=== PATIENT | male | born 1950 | race Caucasian/White ===

== ENCOUNTER → 2018-11-30 06:59 | Outpatient (CLI) | payer MEDICARE, MEDICAID, SELFPAY ==
[2018-11-30 08:38] LABS: Add Manual Diff / Slide Review NO; Basophils Absolute Auto 0 /uL (0-100); Basophils Percent Auto 0.7 % (0-2); Eosinophils Absolute Auto 300 /uL (0-450); Hematocrit 45.8 % (41-53); Lymphocytes Absolute Auto 2600 /uL (1100-4500); Mean Corpuscular HGB Conc 32.8 % (30-36); Mean Corpuscular Hemoglobin 29.4 PG (26-34); Mean Corpuscular Volume 89.8 fL (80-100); Monocytes Absolute Auto 400 /uL (0-900); Monocytes Percent Auto 5.5 % (3-14); Neutrophils Absolute Auto 3400 /uL (1500-7000); Neutrophils Percent Auto 50.8 % (50-75); Platelet Count 222 X10^3/uL (150-400); Red Cell Distribution Width 13.1 % (11.6-14.8); White Blood Cell Count 6.7 X10^3/uL (4.5-11.0)
[2018-11-30 08:51] LABS: Blood Urea Nitrogen 18 mg/dL (9-20); Calcium 9.3 mg/dL (8.4-10.2); Carbon Dioxide 26 mmol/L (22-32); Chloride 103 mmol/L (98-107); Cholesterol 159 mg/dL (140-199); Estimated Glomerular Filt Rate > 60.0 mL/min (>60); Glucose 106 mg/dL (80-110); HDL Cholesterol 44 mg/dL (40-60); HEMOLYSIS < 15 (0-50); LDL Cholesterol Calculated 96 mg/dL (<100); Potassium 4.1 mmol/L (3.4-5.1); Sodium 143 mmol/L (137-145); Triglycerides 97 mg/dL (35-150)
== END ==
PROVIDERS: Family Provider Internal Medicine; PCP Internal Medicine; Visit Provider Internal Medicine Cardiovascular Disease
DX: I10 Essential (primary) hypertension (principal)
CPT/HCPCS: 36415; 80048; 80061; 85025

== ENCOUNTER → 2019-05-27 07:37 | Outpatient (CLI) | payer MEDICARE, MEDICAID, SELFPAY ==
--- NOTE | 2019-05-27 08:44 | P.PCN_ITS ---
Cardiac Stress Test Report Referral & Results Date Patient Seen: 05/27/19 Time Patient Seen: 08:30 Requesting provider: Pedro Moura Indication: Angina Rest ECG: V-paced Procedure Note: After both written and verbal informed consent the patient had an IV started by the diagnostic imaging RN and then was hooked up to the treadmill monitoring system. The patient was placed on the treadmill at 1 mile an hour with no elevation and was then injected with the Ewa scan material. The Cardiolite was then immediately administered. The patient spent an additional 2-3 minutes on the treadmill before being returned to the [facility] in the supine position. The patient had a normal response to all infused materials. Impression: Successful Ewa protocol. Will await perfusion imaging Please note: Actual ECG tracings can be found in the PACS system.
--- NOTE | 2019-05-29 09:03 | DI.NM.S_ITS ---
DATE OF SERVICE: 05/27/2019 PROCEDURE PERFORMED: Pharmacologic stress and rest myocardial perfusion imaging with gating to assess ejection fraction and regional wall motion. ORDERING PROVIDER: Pedro Moura MD INDICATIONS: The patient is a 68-year-old male with a history of AV block requiring a pacemaker who now presents with exertional left shoulder and arm discomfort. CARDIAC STRESS: Per protocol, 0.4 mg of regadenoson was infused, augmented by low level walking. With this, he achieved a maximum heart rate of around 100 bpm with a normal blood pressure response. He had no chest discomfort. His resting ECG shows ventricular pacing tracking sinus rhythm. ST segment analysis cannot be performed because of his paced rhythm but there are no obvious significant ST segment deviations or arrhythmias identified. Per protocol, 25.6 mCi of technetium-99 Myoview were injected and then the patient was imaged 15 minutes later using a gated SPECT acquisition protocol. He returned the following day and was reinjected with an additional 25.4 mCi of technetium-99 Myoview and was imaged 30 minutes later, again using a gated SPECT acquisition protocol. FINDINGS: 1. Raw Data: There is fair myocardial tracer uptake. The lung/heart ratio is normal at 0.33 with a normal TID ratio of 0.93. 2. Quantitative Gated SPECT: Post-stress ejection fraction is estimated at 74% with a mild dyssynchronous contraction pattern and an apical and distal septal wall motion abnormality, which is often seen with ventricular pacing. There are no other wall motion abnormalities. The resting ejection fraction is estimated at 63% with an identical contraction pattern. Left ventricular volumes are moderately increased with an end-diastolic volume of 195 mL. 3. Myocardial Perfusion Imaging: Post-stress supine images show mildly reduced tracer activity throughout the entire inferior wall but completely normalizes on the prone imaging, suggesting this reflects diaphragmatic attenuation. In addition, there is a more significant perfusion defect in the very distal anterior apex that improves but does not completely resolve on the prone images. This, too, can be potentially attributed to pacemaker artifact. The resting images show an identical perfusion pattern to that of the post-stress supine images with no improvement in the apical defect. CONCLUSIONS: 1. Probable normal myocardial perfusion study. 2. Small fixed perfusion defect at the apex. While a previous nontransmural infarction cannot be excluded, this defect is often seen with ventricular pacing. There is no reversibility to suggest any myocardial ischemia. 3. Preserved left ventricular systolic function although with an apical wall motion abnormality, again likely related to ventricular pacing. Left ventricular volumes are moderately enlarged. 4. No angina with pharmacologic vasodilator stress. The presence of ventricular pacing precludes assessment of any ST segment abnormalities. Stuart Tang - DANYELLE/jhonny/ts doc#: [id number]/job#: [id number] dd: 05/28/2019 16:20:00 dt: 05/29/2019 08:10:00 DICTATING MD/COPIES TO: Akhil Garcia MD; Pedro Moura MD COPIES MNE: FRANCHESCA HOWELL
== END ==
PROVIDERS: Family Provider Internal Medicine; PCP Internal Medicine; Visit Provider Internal Medicine
DX: I20.9 Angina pectoris, unspecified (principal); M25.512 Pain in left shoulder; M79.602 Pain in left arm; Z95.0 Presence of cardiac pacemaker
CPT/HCPCS: 78452; 93016; 93017; 93018; A9502; J2785

== ENCOUNTER → 2020-01-13 12:06 | Outpatient (CLI) | payer MEDICARE, MEDICAID, SELFPAY ==
--- NOTE | 2020-01-13 12:10 | DI.CT.S_ITS ---
PROCEDURE: CT LUMBAR SPINE WO CON INDICATIONS: Low back pain TECHNIQUE: Noncontrast 3 mm thick sections acquired from the T12 level to the sacrum. Sagittal and coronal reformats were constructed. For radiation dose reduction, the following was used: automated exposure control. COMPARISON: None. FINDINGS: Image quality: Excellent. There is normal bony alignment. Multilevel degenerative endplate sclerosis and spurring. Diffuse facet arthropathy. No acute vertebral body compression fractures. No suspicious lytic or blastic bony lesions. Severe L5-S1 disc is height loss. There is minimal disc height loss elsewhere in lumbar spine. No bony canal stenosis is identified. Mild right L3-L4 bony foraminal narrowing. Moderate left L5-S1 bony foraminal stenosis. Mild bilateral sprain otherwise unremarkable appearance of the sacroiliac joints. Scattered vascular calcifications seen in the aorta. . IMPRESSION: Severe L5-S1 disc degeneration. Moderate left L5-S1 bony foraminal stenosis Mild right L3-L4 bony foraminal narrowing. No significant bony canal stenosis. Diffuse facet arthropathy. Dictated by: Heath Swanson M.D. on 01/13/2020 at 14:45 Approved by: Heath Swanson M.D. on 01/13/2020 at 14:50
== END ==
PROVIDERS: Family Provider Internal Medicine; PCP Internal Medicine; Referring Provider Internal Medicine; Visit Provider Internal Medicine
DX: M54.5 Low back pain (principal); M51.17 Intervertebral disc disorders with radiculopathy, lumbosacral region; M48.07 Spinal stenosis, lumbosacral region; M48.061 Spinal stenosis, lumbar region without neurogenic claudication; M47.819 Spondylosis without myelopathy or radiculopathy, site unspecified
CPT/HCPCS: 72131

== ENCOUNTER → 2020-04-26 07:10 | Outpatient (CLI) | payer MEDICARE, MEDICAID, SELFPAY ==
--- NOTE | 2020-04-26 | DI.RAD.S_ITS ---
PROCEDURE: XR CHEST 2V INDICATIONS: Shortness of breath TECHNIQUE: 2 views of the chest were acquired. COMPARISON: None. FINDINGS: Surgical changes and devices: Pacemaker device with dual chamber leads appear in normal position.. Lungs and pleura: Lungs are abnormal with mild interstitial prominence and relatively large lung volumes, COPD may be present. No pleural effusions or pneumothorax. Mediastinum: Mediastinal contours are normal. Heart size is normal. Bones and chest wall: No suspicious bony abnormalities. Soft tissues appear unremarkable. IMPRESSION: Suspect COPD. Pacemaking device and dual chamber leads appear normal. No pneumonia found. No pneumothorax present. Dictated by: Froylan Lund M.D. on 04/26/2020 at 8:17 Approved by: Froylan Lund M.D. on 04/26/2020 at 8:18
[2020-04-26 08:03] LABS: Add Manual Diff / Slide Review NO; Basophils Absolute Auto 0 /uL (0-100); Basophils Percent Auto 0.7 % (0-2); Eosinophils Absolute Auto 300 /uL (0-450); Eosinophils Percent Auto 4.7 % (2-4); Hematocrit 42.9 % (41-53); Hemoglobin 14.7 g/dL (13.5-17.5); Lymphocytes Absolute Auto 2600 /uL (1100-4500); Lymphocytes Percent Auto 38.9 % (25-40); Mean Corpuscular HGB Conc 34.1 % (30-36); Mean Corpuscular Hemoglobin 30.8 PG (26-34); Mean Corpuscular Volume 90.2 fL (80-100); Monocytes Absolute Auto 400 /uL (0-900); Monocytes Percent Auto 6.4 % (3-14); Neutrophils Absolute Auto 3300 /uL (1500-7000); Neutrophils Percent Auto 49.3 % (50-75); Platelet Count 195 X10^3/uL (150-400); Red Blood Cell Count 4.76 X10^6/uL (4.5-5.9); Red Cell Distribution Width 12.8 % (11.6-14.8); White Blood Cell Count 6.6 X10^3/uL (4.5-11.0)
[2020-04-26 08:21] LABS: Alanine Aminotransferase 40 IU/L (<50); Albumin 4.7 g/dL (3.5-5.0); Albumin Globulin Ratio 1.5 (1.0-2.8); Alkaline Phosphatase 109 U/L (38-126); Aspartate Aminotransferase 36 IU/L (17-59); BUN Creatinine Ratio 20.7 (6-22); Bilirubin Total 1.1 mg/dL (0.2-1.3); Blood Urea Nitrogen 19 mg/dL (9-20); Calcium 9.5 mg/dL (8.4-10.2); Carbon Dioxide 24 mmol/L (22-32); Chloride 106 mmol/L (98-107); Estimated Glomerular Filt Rate > 60.0 mL/min (>60); Globulin 3.2 g/dL (1.7-4.1); Glucose 117 mg/dL (80-110); HEMOLYSIS 15 (0-50); Potassium 4.1 mmol/L (3.4-5.1); Sodium 139 mmol/L (137-145); Total Protein 7.9 g/dL (6.3-8.2)
== END ==
PROVIDERS: Family Provider Internal Medicine; PCP Internal Medicine; Referring Provider Internal Medicine; Visit Provider Internal Medicine
DX: R06.02 Shortness of breath (principal)
CPT/HCPCS: 36415; 71046; 80053; 85025

== ENCOUNTER → 2020-05-05 10:42 | Outpatient (CLI) | payer MEDICARE, MEDICAID, SELFPAY ==
--- NOTE | 2020-05-05 11:22 | DI.CT.S_ITS ---
PROCEDURE: CT ANGIO CHEST PE PROTOCOL INDICATIONS: Shortness of breath, CHEST PAIN TECHNIQUE: After the administration of intravenous contrast, 2 mm thick sections acquired from the pulmonary apices to the posterior costophrenic angles. 3-dimensional maximum intensity projection (MIP) coronal and sagittal reformats were then acquired through the thorax. For radiation dose reduction, the following was used: automated exposure control, adjustment of mA and/or kV according to patient size. COMPARISON: [facility], CR, XR CHEST 2V, 04/26/2020, 6:50. FINDINGS: Image quality: Excellent. Pulmonary arteries: Pulmonary arteries are normal in size, and demonstrate no intraluminal filling defects to suggest central pulmonary embolism. Lungs and pleura: Lungs are clear. No pleural effusions or pneumothorax. Central and peripheral airways are patent. Mediastinum: Heart size is normal, without pericardial effusion. No mediastinal or hilar adenopathy. Thoracic aorta is normal in caliber and enhancement. Esophagus is normal in caliber, without hiatal hernia. Pacemaker and leads in place. Bones and chest wall: No suspicious bony lesions. Ribs and thoracic spine appear intact throughout. Thyroid gland is appears normal where well seen. No axillary or supraclavicular adenopathy. Abdomen: Visualized upper abdominal solid organs appear normal in the early arterial phase of enhancement. At the posterior border of the pancreatic tail there is an exophytic structure that measures up to 1.6 x 1.2 cm in axial dimension and approximately 1 cm craniocaudad. This is slightly more dense than adjacent normal pancreatic parenchyma. Etiology is uncertain. IMPRESSION: 1. No pulmonary embolus or other source of shortness of breath is found. 2. Exophytic 1.6 x 1.2 x 1.0 cm pancreatic soft tissue mass projecting posteriorly from the pancreatic tail. This structure appears to have slightly higher radiodensities in adjacent pancreatic parenchyma. A high resolution thin section without-and with-contrast pancreatic protocol CT scan is recommended (without oral contrast) for most accurate assessment of this finding. Dictated by: Froylan Lund M.D. on 05/05/2020 at 11:25 Approved by: Froylan Lund M.D. on 05/05/2020 at 11:31
== END ==
PROVIDERS: Family Provider Internal Medicine; PCP Internal Medicine; Referring Provider Internal Medicine; Visit Provider Internal Medicine
DX: R06.02 Shortness of breath (principal); R07.9 Chest pain, unspecified; K86.9 Disease of pancreas, unspecified; Z95.0 Presence of cardiac pacemaker
CPT/HCPCS: 71275

== ENCOUNTER 2020-05-12 23:23 | Emergency (ER) | payer MEDICARE, MEDICAID, SELFPAY ==
[2020-05-12 23:30] VITALS: BP 173/91; PULSE 102; RESP 19; TEMP 36.9; O2SAT 98; BMI 30.3
--- NOTE | 2020-05-12 23:38 | DI.RAD.S_ITS ---
PROCEDURE: XR CHEST 1V INDICATIONS: Chest pain TECHNIQUE: One view of the chest was acquired. COMPARISON: None. FINDINGS: Surgical changes and devices: Pacemaker. Lungs and pleura: Lungs are clear. No pleural effusions or pneumothorax. Mediastinum: Mediastinal contours appear normal. Heart size is normal. Bones and chest wall: No suspicious bony lesions. Overlying soft tissues appear unremarkable. IMPRESSION: No evidence acute pulmonary process. Dictated by: Bo Sunshine M.D. on 05/13/2020 at 8:19 Approved by: Bo Sunshine M.D. on 05/13/2020 at 8:20
--- NOTE | 2020-05-12 23:39 | ED.GENADULT ---
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 Patient states that approximately 3 weeks ago he started to have more consistent left-sided chest discomfort radiating to his left arm. He states that he saw his obstetrics and gynecology professor to gave him nitroglycerin pills and told him to take them as needed. At some point there was discussion about doing a cardiac catheterization however that has yet to happen. Patient states that for the past 3 weeks he has taken 3-4 nitroglycerin tablets on a daily basis. When he contacted his obstetrics and gynecology professor again the patient states that his obstetrics and gynecology professor was concerned at how many pills he had been taking. Patient states that he ?lost confidence ?in his obstetrics and gynecology professor so he switched to a new obstetrics and gynecology professor at the [facility]. He is yet to see this new provider. Is scheduled next Friday for an initial visit. Patient comes emergency department today because he had chest discomfort this morning. Took 2 nitro pills which she states did not help his chest pain is much as it has in the past. Throughout the day his chest pain improved on its own but then this evening he woke up with pain again. It has been the same pain he has had over the past 3 weeks. No shortness of breath. Has a pressure sensation. Radiating down his left arm. Did not take any nitro prior to arrival. Related Data Home Medications Medication Instructions Recorded Confirmed [FISH OIL] PO QDAY #0 06/23/17 [FLAXSEED OIL] PO QDAY #0 06/23/17 [GLUCOSAMINE/MSM] PO QDAY #0 06/23/17 [NIACIN] PO QDAY #0 06/23/17 [VITAMIN C] 2 tab PO QDAY #0 06/23/17 [VITAMIN D] 1 tab PO QDAY #0 06/23/17 [VITAMIN E] PO QDAY #0 06/23/17 albuterol sulfate [Proventil HFA] 1 puff INH PRN PRN #0 06/23/17 aspirin 325 mg PO QDAY #0 06/23/17 rosuvastatin [Crestor] 5 mg PO QDAY #0 06/23/17 triamcinolone acetonide 1 johnathon TOPICAL PRN PRN #0 06/23/17 vitamin B complex [B 2 tab PO QDAY #0 06/23/17 Complex-Vitamin B12] Previous Rx's Medication Instructions Recorded dutasteride 0.5 mg PO HS #90 cap 09/16/17 felodipine 5 mg PO QDAY #90 tab 09/16/17 losartan 100 mg PO QDAY #90 tab 09/16/17 Allergies Allergy/AdvReac Type Severity Reaction Status Date / Time tamsulosin [TAMSULOSIN] AdvReac Intermediate Diarrrhea Verified 05/12/20 23:50 Review of Systems Constitutional Constitutional: Denies fever(s) and Denies headache(s) ENT Ears, Nose, Mouth, and Throat: Denies headache(s) Cardiovascular Cardiovascular: Reports chest pain, Reports chest pain at rest, Denies irregular heart rhythm, Denies lightheadedness, Denies dyspnea, Denies dyspnea on exertion and Denies orthopnea Respiratory Respiratory: Denies cough, Denies dyspnea and Denies dyspnea on exertion Gastrointestinal Gastrointestinal: Denies abdominal pain, Denies change in bowel habits, Denies nausea and Denies vomiting Genitourinary Genitourinary: Denies dysuria Genitourinary: Denies dysuria Musculoskeletal Musculoskeletal: Denies arthralgias and Denies myalgias Integumentary/Breasts Skin/Breast: Denies lesions and Denies rash Neurologic Neurologic: Denies behavioral changes and Denies headache(s) Psychiatric Psychiatric: Denies anxiety and Denies behavioral changes Hematologic/Lymphatic Hematologic/Lymphatic: Denies easy bleeding and Denies easy bruising Allergic/Immunologic Allergic/Immunologic: Denies urticaria Patient History Medical History Enlarged prostate Essential hypertension Hyperlipidemia Surgical History History of tonsillectomy Status post appendectomy Status post arthroscopy Family History Father Heart disease Mother Heart disease Type 2 diabetes mellitus with unspecified complications Depression Social History Smoking Status: Never smoker Exam Initial Vital Signs Initial Vital Signs: Vital Signs Temperature 98.4 F 05/12/20 23:30 Pulse Rate 102 H 05/12/20 23:30 Respiratory Rate 19 05/12/20 23:30 Blood Pressure 173/91 H 05/12/20 23:30 Pulse Oximetry 98 05/12/20 23:30 Const General: cooperative, healthy appearing, comfortable and well developed Limitations: mental status not altered HENMT Head: normal to inspection and normocephalic Resp Effort & Inspection: normal respiratory effort Auscultation: clear to auscultation bilaterally Cardio Rate: regular rate Rhythm: regular rhythm GI Inspection: non-distended Palpation: soft and No firm Skin Lesions: no lesions Rashes: no rashes Neuro General: patient alert, patient awake and patient oriented x3 Cognition: normal cognition Speech: speech normal Extrem General: normal to inspection and capillary refill normal Psych Appearance: grossly normal and well kempt Scores GCS [place] coma scale eye opening: Spontaneous Alfonso coma scale verbal response: Orientated Alfonso coma scale motor response: Obey commands Alfonso coma scale total score: 15 HEART Score Heart Score history: Highly Suspicious Heart Score EKG: Normal Heart Score Age: > or = 65 years old Heart Score risk factors: 1-2 risk factors Heart Score troponin: < or = to normal limit Heart Score Total: 5 Course Orders Ordered: ED Orders 05/12/20 23:25 EKG-12 Lead Stat 05/12/20 23:35 Complete Blood Count AUTO DIFF Stat Comprehensive Metabolic Panel Stat Partial Thromboplastin Time Stat Prothrombin Time INR Stat Troponin & CK Cardiac Panel Stat 05/12/20 23:38 XR chest 1V Stat 05/13/20 03:16 Troponin I Stat Heparin Sodium/Dextrose (Heparin Drip) 25,000 unit in 500 mls @ 20 mls/hr IV CONT NINI; Protocol Last Admin: 05/13/20 04:26 Dose: 1,000 units/hr, 20 mls/hr Documented by: JEROMY Discontinued Medications Acetaminophen (Tylenol) 975 mg PO NOW ONE Stop: 05/13/20 04:31 Last Admin: 05/13/20 04:33 Dose: 975 mg Documented by: JEROMY Aspirin (Aspirin Chew) 324 mg PO NOW ONE Stop: 05/12/20 23:38 Last Admin: 05/12/20 23:54 Dose: 324 mg Documented by: YAYO Heparin Sodium (Porcine) (Heparin) 5,000 unit IV NOW ONE Stop: 05/13/20 04:18 Last Admin: 05/13/20 04:26 Dose: 5,000 unit Documented by: JEROMY Nitroglycerin (Nitro-Bid) 1 inch TOP NOW ONE Stop: 05/12/20 23:38 Last Admin: 05/12/20 23:52 Dose: 1 inch Documented by: YAYO Vital Signs Vital signs: Vital Signs - 8 hr 05/12/20 23:30 05/12/20 23:52 05/13/20 00:30 Temperature 98.4 F Pulse Rate 102 H 94 H 95 H Respiratory Rate 19 17 Blood Pressure 173/91 H 173/91 H Blood Pressure [Right Arm] 158/85 H Pulse Oximetry 98 96 05/13/20 01:28 05/13/20 01:30 05/13/20 02:00 Temperature Pulse Rate 85 88 87 Respiratory Rate 16 21 18 Blood Pressure Blood Pressure [Right Arm] 147/70 H 144/75 H 140/73 Pulse Oximetry 94 94 93 05/13/20 02:30 05/13/20 03:00 05/13/20 03:30 Temperature Pulse Rate 84 82 80 Respiratory Rate 16 18 20 Blood Pressure Blood Pressure [Right Arm] 142/83 H 152/78 H 149/83 H Pulse Oximetry 94 93 94 05/13/20 04:00 05/13/20 04:30 05/13/20 05:00 Temperature Pulse Rate 75 78 78 Respiratory Rate 14 17 17 Blood Pressure Blood Pressure [Right Arm] 144/83 H 154/89 H 154/86 H Pulse Oximetry 96 97 95 05/13/20 05:30 Temperature Pulse Rate 75 Respiratory Rate 18 Blood Pressure Blood Pressure [Right Arm] 172/92 H Pulse Oximetry 95 Medical Decision Making Lab Data Lab results reviewed: Yes I reviewed the patient's lab results. Result diagrams: 05/12/20 23:35 05/12/20 23:35 Labs: Lab Results 05/12/20 05/12/20 05/12/20 Range/Units 23:35 23:35 23:35 WBC 8.8 (4.5-11.0) X10^3/uL RBC 4.85 (4.5-5.9) X10^6/uL Hgb 14.9 (13.5-17.5) g/dL Hct 43.6 (41-53) % MCV 89.8 (80-100) fL MCH 30.8 (26-34) PG MCHC 34.3 (30-36) % RDW 12.6 (11.6-14.8) % Plt Count 225 (150-400) X10^3/uL Neut % (Auto) 46.0 L (50-75) % Lymph % (Auto) 42.3 H (25-40) % Crane % (Auto) 6.9 (3-14) % Eos % (Auto) 4.4 H (2-4) % Baso % (Auto) 0.4 (0-2) % Neut # (Auto) 4100 (0943-6550) /uL Lymph # (Auto) 3700 (6787-7785) /uL Crane # (Auto) 600 (0-900) /uL Eos # (Auto) 400 (0-450) /uL Baso # (Auto) 0 (0-100) /uL PT 11.0 (10.1-12.7) SECONDS INR 1.0 (0.9-1.3) APTT 31 (26.4-36.2) SECONDS Sodium 139 (137-145) mmol/L Potassium 3.8 (3.4-5.1) mmol/L Chloride 103 (98-107) mmol/L Carbon Dioxide 24 (22-32) mmol/L BUN 24 H (9-20) mg/dL Creatinine 0.99 (0.66-1.25) mg/dL Estimated GFR > 60.0 (>60) mL/min BUN/Creatinine Ratio 24.2 H (6-22) Glucose 123 H (80-110) mg/dL Calcium 10.2 (8.4-10.2) mg/dL Total Bilirubin 0.6 (0.2-1.3) mg/dL AST 43 (17-59) IU/L ALT 44 (<50) IU/L Alkaline Phosphatase 140 H (38-126) U/L Total Creatine Kinase 139 (55-170) U/L CK-MB (CK-2) 2.31 (<2.37) ng/mL CK-MB (CK-2) Rel Index 1.7 (1.5-5.0) % Troponin I < 0.012 (0.01-0.034) ng/mL Total Protein 8.3 H (6.3-8.2) g/dL Albumin 4.9 (3.5-5.0) g/dL Globulin 3.4 (1.7-4.1) g/dL Albumin/Globulin Ratio 1.4 (1.0-2.8) COVID-19 PCR (Negative) 05/13/20 05/13/20 Range/Units 02:15 03:16 WBC (4.5-11.0) X10^3/uL RBC (4.5-5.9) X10^6/uL Hgb (13.5-17.5) g/dL Hct (41-53) % MCV (80-100) fL MCH (26-34) PG MCHC (30-36) % RDW (11.6-14.8) % Plt Count (150-400) X10^3/uL Neut % (Auto) (50-75) % Lymph % (Auto) (25-40) % Crane % (Auto) (3-14) % Eos % (Auto) (2-4) % Baso % (Auto) (0-2) % Neut # (Auto) (2127-4350) /uL Lymph # (Auto) (3464-6126) /uL Crane # (Auto) (0-900) /uL Eos # (Auto) (0-450) /uL Baso # (Auto) (0-100) /uL PT (10.1-12.7) SECONDS INR (0.9-1.3) APTT (26.4-36.2) SECONDS Sodium (137-145) mmol/L Potassium (3.4-5.1) mmol/L Chloride (98-107) mmol/L Carbon Dioxide (22-32) mmol/L BUN (9-20) mg/dL Creatinine (0.66-1.25) mg/dL Estimated GFR (>60) mL/min BUN/Creatinine Ratio (6-22) Glucose (80-110) mg/dL Calcium (8.4-10.2) mg/dL Total Bilirubin (0.2-1.3) mg/dL AST (17-59) IU/L ALT (<50) IU/L Alkaline Phosphatase (38-126) U/L Total Creatine Kinase (55-170) U/L CK-MB (CK-2) (<2.37) ng/mL CK-MB (CK-2) Rel Index (1.5-5.0) % Troponin I 0.600 H* (0.01-0.034) ng/mL Total Protein (6.3-8.2) g/dL Albumin (3.5-5.0) g/dL Globulin (1.7-4.1) g/dL Albumin/Globulin Ratio (1.0-2.8) COVID-19 PCR Negative (Negative) Imaging Data Chest x-ray: Attestation: I personally reviewed and interpreted this imaging study as follows: My Impression: Pacemaker in place, no acute pathology ECG Data Attestation: I personally reviewed and interpreted this ECG as follows: Prior ECG tracings: not available for review Interpretation: Ventricular paced Ventricular rate of 98 No changes consistent with ST-elevation [place] MDM Narrative Medical decision making narrative: Nitropaste was placed and patient did report improvement of his symptoms. First troponin negative. Chest x-ray is unremarkable. Ventricularly paced on the EKG without changes consistent with ST-elevation [place]. Patient was also given an aspirin. I discussed the case with Dr. Hong with cardiology who stated that he would be happy to see the patient he was transferred to his facility. I then discussed the case with Dr youssef with Internal Medicine who will accept the patient in transfer. Discussed this with the patient. We will hold on heparin drip for now. Patient is stable for transfer. I did discuss the transfer with the patient. He expressed understanding and agreement. While waiting for bed assignment repeat troponin was obtained. This troponin is now elevated. Patient was started on heparin drip. He has already received aspirin. His pain is essentially resolved with time/nitropaste. Informed the admitting provider at transfer facility who expressed understanding. Patient is still stable for transfer. Discharge Plan Departure Patient Disposition: [facility] Clinical Impression: Non-ST elevation [place] (NSTEMI) Hypertension Qualifiers: Hypertension type: unspecified Qualified Code(s): I10 - Essential (primary) hypertension Prescriptions: No Action albuterol sulfate [Proventil HFA] 90 MCG/PUFF HFA aerosol inhaler 1 puff INH PRN PRNQty: 0 RF: 0 triamcinolone acetonide 0.1 % cream 1 johnathon Topical PRN PRNQty: 0 RF: 0 vitamin B complex [B Complex-Vitamin B12] 1 EACH tablet 2 tab PO QDAY Qty: 0 RF: 0 [VITAMIN E] PO QDAY Qty: 0 RF: 0 [VITAMIN C] 2 tab PO QDAY Qty: 0 RF: 0 [VITAMIN D] 1 tab PO QDAY Qty: 0 RF: 0 [GLUCOSAMINE/MSM] PO QDAY Qty: 0 RF: 0 [FISH OIL] PO QDAY Qty: 0 RF: 0 [FLAXSEED OIL] PO QDAY Qty: 0 RF: 0 [NIACIN] PO QDAY Qty: 0 RF: 0 rosuvastatin [Crestor] 5 MG tablet 5 mg PO QDAY Qty: 0 RF: 0 aspirin 325 MG tablet,delayed release (DR/EC) 325 mg PO QDAY Qty: 0 RF: 0 felodipine 5 MG tablet extended release 24 hr 5 mg PO QDAY Qty: 90 RF: 1 losartan 100 MG tablet 100 mg PO QDAY Qty: 90 RF: 1 dutasteride 0.5 MG capsule 0.5 mg PO HS Qty: 90 RF: 1 Referrals: Pedro Moura MD [Primary Care Provider] -
[2020-05-12 23:52] VITALS: BP 173/91; PULSE 94
[2020-05-12] MEDS: NITROGLYCERIN OINT 1 INCH/GM OINT...G. TOP (23:52)
[2020-05-12 23:54] LABS: Add Manual Diff / Slide Review NO; Basophils Absolute Auto 0 /uL (0-100); Basophils Percent Auto 0.4 % (0-2); Eosinophils Absolute Auto 400 /uL (0-450); Eosinophils Percent Auto 4.4 % (2-4); Hematocrit 43.6 % (41-53); Hemoglobin 14.9 g/dL (13.5-17.5); Lymphocytes Absolute Auto 3700 /uL (1100-4500); Lymphocytes Percent Auto 42.3 % (25-40); Mean Corpuscular HGB Conc 34.3 % (30-36); Mean Corpuscular Hemoglobin 30.8 PG (26-34); Mean Corpuscular Volume 89.8 fL (80-100); Monocytes Absolute Auto 600 /uL (0-900); Monocytes Percent Auto 6.9 % (3-14); Neutrophils Absolute Auto 4100 /uL (1500-7000); Platelet Count 225 X10^3/uL (150-400); Red Blood Cell Count 4.85 X10^6/uL (4.5-5.9); Red Cell Distribution Width 12.6 % (11.6-14.8); White Blood Cell Count 8.8 X10^3/uL (4.5-11.0)
[2020-05-12] MEDS: ASPIRIN 81 MG CHEW TAB 324 MG PO (23:54)
[2020-05-13] VITALS (12 sets, daily range): BP systolic 127–172; BP diastolic 70–92; PULSE 75–95; RESP 14–23; O2SAT 93–97
[2020-05-13 00:03] LABS: Alanine Aminotransferase 44 IU/L (<50); Albumin 4.9 g/dL (3.5-5.0); Albumin Globulin Ratio 1.4 (1.0-2.8); Alkaline Phosphatase 140 U/L (38-126); Aspartate Aminotransferase 43 IU/L (17-59); Bilirubin Total 0.6 mg/dL (0.2-1.3); Calcium 10.2 mg/dL (8.4-10.2); Carbon Dioxide 24 mmol/L (22-32); Chloride 103 mmol/L (98-107); Creatine Kinase 139 U/L (55-170); Estimated Glomerular Filt Rate > 60.0 mL/min (>60); Globulin 3.4 g/dL (1.7-4.1); Glucose 123 mg/dL (80-110); HEMOLYSIS 22 (0-50); PTT Partial Thromboplastin Tim 31 SECONDS (26.4-36.2); Potassium 3.8 mmol/L (3.4-5.1); Sodium 139 mmol/L (137-145); Total Protein 8.3 g/dL (6.3-8.2)
[2020-05-13 00:04] LABS: BUN Creatinine Ratio 24.2 (6-22); Blood Urea Nitrogen 24 mg/dL (9-20)
[2020-05-13 00:15] LABS: Troponin I < 0.012 ng/mL (0.01-0.034)
[2020-05-13 00:18] LABS: CKMB % Relative Index 1.7 % (1.5-5.0); Creatine Kinase MB 2.31 ng/mL (<2.37)
--- NOTE | 2020-05-13 01:22 | PC.NURSE ---
Patient reports took his own nitro x3. It helped with the pain but then the pain returned.
[2020-05-13 03:14] LABS: COVID19 -Nasal RAPID Negative (Negative)
[2020-05-13] MEDS: HEPARIN 5,000 UNIT/ML VIAL 5000 UNIT IV (04:26)
[2020-05-13] MEDS: HEPARIN DRIP 25,000 UNIT/500 ML IV.SOLN 20 UNIT IV (04:26)
[2020-05-13] MEDS: ACETAMINOPHEN 325 MG TABLET 975 MG PO (04:33)
--- NOTE | 2020-05-13 08:08 | PC.NURSE ---
Patient transferred with Heparin running at 20 ml /hr.
--- NOTE | 2020-05-13 08:15 | PC.NURSE ---
Ambulance here for pt. Attempt to call report and nurse is not in yet. # [phone] EXT [id number]
== END 2020-05-13 08:20 | disposition short-term general hospital (02) ==
PROVIDERS: Emergency Provider Emergency Medicine; Family Provider Internal Medicine; PCP Internal Medicine
DX: I21.4 Non-ST elevation (NSTEMI) myocardial infarction (principal); I10 Essential (primary) hypertension; R79.89 Other specified abnormal findings of blood chemistry; Z95.0 Presence of cardiac pacemaker; I25.10 Atherosclerotic heart disease of native coronary artery without angina pectoris
CPT/HCPCS: 36415; 71045; 80053; 82550; 82553; 84484; 85025; 85610; 85730; 87635; 93005; 96365; 96366; 96375; 99285; J1644

== ENCOUNTER → 2020-07-28 19:03 | Outpatient (ROUT) | payer MEDICARE, MEDICAID, SELFPAY | PROVIDERS: Family Provider Internal Medicine; PCP Internal Medicine; Visit Provider Internal Medicine | DX: K86.89 Other specified diseases of pancreas (principal); Z01.83 Encounter for blood typing | CPT/HCPCS: 86850; 86900; 86901 ==

== ENCOUNTER → 2020-08-05 08:06 | Outpatient (CLI) | payer MEDICARE, MEDICAID, SELFPAY ==
[2020-08-06 16:11] LABS: COVID19 Sendout Not Detected (Not Detect)
== END ==
PROVIDERS: Family Provider Internal Medicine; PCP Internal Medicine; Visit Provider Physician Assistant
DX: Z11.59 Encounter for screening for other viral diseases (principal)
CPT/HCPCS: 87635

== ENCOUNTER → 2020-08-08 07:24 | Outpatient (CLI) | payer MEDICARE, MEDICAID, SELFPAY ==
[2020-08-08 08:03] LABS: Alanine Aminotransferase 31 IU/L (<50); Albumin 4.6 g/dL (3.5-5.0); Albumin Globulin Ratio 1.4 (1.0-2.8); Alkaline Phosphatase 104 U/L (38-126); Aspartate Aminotransferase 27 IU/L (17-59); BUN Creatinine Ratio 16.7 (6-22); Bilirubin Total 1.2 mg/dL (0.2-1.3); Blood Urea Nitrogen 17 mg/dL (9-20); Calcium 9.4 mg/dL (8.4-10.2); Carbon Dioxide 26 mmol/L (22-32); Chloride 106 mmol/L (98-107); Estimated Glomerular Filt Rate > 60.0 mL/min (>60); Globulin 3.2 g/dL (1.7-4.1); Glucose 96 mg/dL (80-110); HEMOLYSIS < 15 (0-50); Potassium 4.3 mmol/L (3.4-5.1); Sodium 141 mmol/L (137-145); Total Protein 7.8 g/dL (6.3-8.2)
== END ==
PROVIDERS: Family Provider Internal Medicine; PCP Internal Medicine; Referring Provider Internal Medicine; Visit Provider Internal Medicine
DX: K86.9 Disease of pancreas, unspecified (principal)
CPT/HCPCS: 36415; 80053

== ENCOUNTER 2020-09-07 08:30 | Outpatient (RCR) | payer MEDICARE, MEDICAID, SELFPAY | END 2020-09-07 09:30 | LOC: CAR 08:30 | PROVIDERS: Family Provider Internal Medicine; PCP Internal Medicine; Referring Provider Internal Medicine; Visit Provider Internal Medicine | DX: I21.4 Non-ST elevation (NSTEMI) myocardial infarction (principal) | CPT/HCPCS: 93798 ==

== ENCOUNTER → 2020-10-20 07:03 | Outpatient (CLI) | payer MEDICARE, MEDICAID, SELFPAY ==
[2020-10-20 08:35] LABS: BUN Creatinine Ratio 16.9 (6-22); Blood Urea Nitrogen 15 mg/dL (9-20); Estimated Glomerular Filt Rate > 60.0 mL/min (>60)
== END ==
PROVIDERS: Family Provider Internal Medicine; PCP Internal Medicine; Referring Provider Internal Medicine; Visit Provider Internal Medicine
DX: K86.9 Disease of pancreas, unspecified (principal)
CPT/HCPCS: 36415; 82565; 84520

== ENCOUNTER → 2020-10-26 07:55 | Outpatient (CLI) | payer MEDICARE, MEDICAID, SELFPAY ==
--- NOTE | 2020-10-26 08:34 | DI.CT.S_ITS ---
PROCEDURE: CT ABDOMEN W CON INDICATIONS: Other specified diseases of pancreas TECHNIQUE: Pancreatic protocol was utilized. After the administration of oral and intravenous contrast, 3 mm thick sections acquired from the diaphragms to the iliac crests. Images were obtained in arterial phase and venous phase. 5 mm thick coronal and sagittal reformats were acquired. For radiation dose reduction, the following was used: automated exposure control, adjustment of mA and/or kV according to patient size. COMPARISON: [facility], CT, CT ANGIO CHEST PE PROTOCOL, 05/05/2020, 11:16. FINDINGS: Image quality: Excellent. Pancreas: The lobulated density extending anteriorly from the tail of the pancreas, which was previously described as a 1.6 x 1.2 x 1.0 cm pancreatic tail mass, has identical enhancement with the rest of the pancreas. It is felt to represent lobulated pancreatic tissue and not a suspicious mass. Pancreas enhances normally. No dilatation of the pancreatic duct. No dilatation of the biliary tree. Lung bases: Lung bases are clear. Heart size is normal. Solid organs: Liver is normal in size and enhancement. Gallbladder is unremarkable . Biliary system is non dilated. Spleen is normal in size and enhancement. No adrenal nodules. Kidneys are normal in size, without hydronephrosis. Peritoneum and bowel: Contrast enhanced bowel loops appear normal in caliber. No free fluid or air. Nodes and vessels: No retroperitoneal or mesenteric adenopathy by size criteria. Aorta and inferior vena cava are normal in size. Mild atherosclerotic calcifications. Bones: No suspicious bony lesions. No vertebral body compression fractures. Miscellaneous: No ventral hernias. IMPRESSION: A question of a pancreatic tail mass was raised on the previous CT angiogram of the chest. The pancreatic tissue enhances identically to the rest of the pancreas, and this is felt to represent a focal area of lobulated pancreatic tissue and not a mass. Dictated by: Bo Sunshine M.D. on 10/26/2020 at 10:08 Approved by: Bo Sunshine M.D. on 10/26/2020 at 10:15
== END ==
PROVIDERS: Family Provider Internal Medicine; PCP Internal Medicine; Referring Provider Internal Medicine; Visit Provider Internal Medicine
DX: K86.89 Other specified diseases of pancreas (principal)
CPT/HCPCS: 74160; Q9967

== ENCOUNTER → 2021-01-26 12:06 | Outpatient (CLI) | payer MEDICARE, MEDICAID, SELFPAY ==
[2021-01-26] MEDS: COVID-19 VACC, Ad26(JANSSEN)/PF 0.5 ML IM (12:19)
== END ==
PROVIDERS: Family Provider Internal Medicine; PCP Internal Medicine; Visit Provider Internal Medicine
DX: Z23 Encounter for immunization (principal)
CPT/HCPCS: 0031A; 91303

== ENCOUNTER → 2021-08-30 06:45 | Outpatient (CLI) | payer MEDICARE, MEDICAID, SELFPAY ==
--- NOTE | 2021-08-30 | DI.RAD.S_ITS ---
PROCEDURE: XR HAND RT 2V INDICATIONS: Pain in unspecified joint TECHNIQUE: 2 views of the hand(s) acquired. COMPARISON: None. FINDINGS: Bones: No fractures or dislocations. Mild joint space loss and osteophytosis about the 1st interphalangeal as well as the 2nd and 3rd distal interphalangeal articulations. Sclerotic focus in the 1st distal phalanx, compatible bone island. An ossific density projects dorsal to the radiocarpal articulation, likely reflecting prior radial styloid fracture. Carpal bones are normally aligned. No suspicious bony lesions. Soft tissues: No suspicious soft tissue calcifications. IMPRESSION: No acute osseous abnormality. Dictated by: Dawood Henriquez M.D. on 08/30/2021 at 9:12 Approved by: Dawood Henriquez M.D. on 08/30/2021 at 9:14
--- NOTE | 2021-08-30 | DI.RAD.S_ITS ---
PROCEDURE: XR HAND LT 2V INDICATIONS: Pain in unspecified joint TECHNIQUE: 2 views of the hand(s) acquired. COMPARISON: None. FINDINGS: Bones: No fractures or dislocations. Carpal bones are normally aligned. No suspicious bony lesions. Moderate to advanced arthrosis about the 1st carpometacarpal articulations. A small ossific density seen distal to the radial styloid, which likely reflects prior trauma. Mild joint space loss with osteophytosis about the 2nd and 3rd distal interphalangeal joints as well as the radiocarpal articulation. Soft tissues: No suspicious soft tissue calcifications. IMPRESSION: No acute osseous abnormality. Dictated by: Dawood Henriquez M.D. on 08/30/2021 at 8:18 Approved by: Dawood Henriquez M.D. on 08/30/2021 at 8:20
--- NOTE | 2021-08-30 | DI.RAD.S_ITS ---
PROCEDURE: XR SHOULDER LT MIN 2V INDICATIONS: Pain in unspecified joint TECHNIQUE: 3 views of the shoulder were acquired. COMPARISON: None. FINDINGS: Bones: No fractures or dislocations. 1.4 cm lucency in the humeral head, which may reflect fibrocystic change or bone cyst. Moderate arthrosis of the AC joint. No suspicious bony lesions. Visualized ribs appear intact. Soft tissues: No suspicious soft tissue calcifications. IMPRESSION: No acute abnormality. Dictated by: Dawood Henriquez M.D. on 08/30/2021 at 9:23 Approved by: Dawood Henriquez M.D. on 08/30/2021 at 9:27
== END ==
PROVIDERS: Family Provider Internal Medicine; PCP Physician Assistant; Referring Provider Physician Assistant; Visit Provider Physician Assistant
DX: M25.512 Pain in left shoulder (principal); M79.642 Pain in left hand; M79.641 Pain in right hand
CPT/HCPCS: 73030; 73120

== ENCOUNTER → 2022-02-22 07:01 | Outpatient (CLI) | payer MEDICARE, SELFPAY ==
--- NOTE | 2022-02-22 | DI.RAD.S_ITS ---
PROCEDURE: XR HIP W PEL IF DONE LT 2V INDICATIONS: Pain in left hip TECHNIQUE: AP pelvis with lateral view(s) of the left hip(s). COMPARISON: None. FINDINGS: Bones: No fractures or dislocations. Mild to moderate arthrosis of the bilateral hips with joint space loss, fibrocystic change, and osteophytosis. Pelvic ring appears intact. No suspicious bony lesions. Soft tissues: The visualized bowel gas pattern is normal. No suspicious soft tissue calcifications. IMPRESSION: Bilateral hip degeneration as detailed above. Dictated by: Dawood Henriquez M.D. on 02/22/2022 at 9:31 Approved by: Dawood Henriquez M.D. on 02/22/2022 at 9:32
== END ==
PROVIDERS: Family Provider Internal Medicine; PCP Physician Assistant; Referring Provider Physician Assistant; Visit Provider Physician Assistant
DX: M16.0 Bilateral primary osteoarthritis of hip (principal); M25.552 Pain in left hip
CPT/HCPCS: 73502

== ENCOUNTER → 2022-07-24 06:52 | Outpatient (CLI) | payer MEDICARE, SELFPAY ==
[2022-07-24 11:07] LABS: Add Manual Diff / Slide Review NO; Basophils Absolute Auto 0 /uL (0-100); Basophils Percent Auto 0.6 % (0-2); Eosinophils Absolute Auto 300 /uL (0-450); Eosinophils Percent Auto 5.4 % (2-4); Hematocrit 39.4 % (41-53); Hemoglobin 13.4 g/dL (13.5-17.5); Lymphocytes Absolute Auto 1900 /uL (1100-4500); Lymphocytes Percent Auto 32.4 % (25-40); Mean Corpuscular Hemoglobin 31.2 PG (26-34); Mean Corpuscular Volume 91.7 fL (80-100); Monocytes Absolute Auto 400 /uL (0-900); Monocytes Percent Auto 7.5 % (3-14); Neutrophils Absolute Auto 3200 /uL (1500-7000); Neutrophils Percent Auto 54.1 % (50-75); Platelet Count 177 X10^3/uL (150-400); Red Cell Distribution Width 12.9 % (11.6-14.8); White Blood Cell Count 5.9 X10^3/uL (4.5-11.0)
[2022-07-24 11:19] LABS: Creatinine Urine Random 226.8 mg/dL
[2022-07-24 11:23] LABS: Microalbumi Creatinin Ratio Ur 9.7 ug/mg CR (<30); Microalbumin Urine Random 2.2 mg/dL (0-1.6)
[2022-07-24 11:40] LABS: Alanine Aminotransferase 31 IU/L (<50); Albumin 4.5 g/dL (3.5-5.0); Albumin Globulin Ratio 1.5 (1.0-2.8); Alkaline Phosphatase 73 U/L (38-126); Aspartate Aminotransferase 29 IU/L (17-59); BUN Creatinine Ratio 17.2 (6-22); Bilirubin Total 1.3 mg/dL (0.2-1.3); Blood Urea Nitrogen 16 mg/dL (9-20); Carbon Dioxide 28 mmol/L (22-32); Chloride 103 mmol/L (98-107); Cholesterol 124 mg/dL (140-199); Estimated Glomerular Filt Rate > 60 mL/min (>60); Glucose 95 mg/dL (80-110); HDL Cholesterol 47 mg/dL (40-60); HEMOLYSIS < 15 (0-50); LDL Cholesterol Calculated 51 mg/dL (<100); Potassium 4.2 mmol/L (3.4-5.1); Sodium 140 mmol/L (137-145); Total Protein 7.5 g/dL (6.3-8.2); Triglycerides 128 mg/dL (35-150)
[2022-07-24 11:56] LABS: Vitamin D 25 Hydroxy (D3) 91.8 ng/mL (30.0-100.0)
== END ==
PROVIDERS: Family Provider Internal Medicine; PCP Family Medicine; Referring Provider Family Medicine; Visit Provider Family Medicine
DX: I10 Essential (primary) hypertension (principal); E78.5 Hyperlipidemia, unspecified; Z95.0 Presence of cardiac pacemaker; I44.1 Atrioventricular block, second degree; E56.9 Vitamin deficiency, unspecified
CPT/HCPCS: 36415; 80053; 80061; 82043; 82306; 82570; 85025

== ENCOUNTER → 2023-01-23 06:56 | Outpatient (CLI) | payer MEDICARE, SELFPAY ==
[2023-01-23 09:27] LABS: Alanine Aminotransferase 34 IU/L (<50); Albumin 4.5 g/dL (3.5-5.0); Albumin Globulin Ratio 1.5 (1.0-2.8); Alkaline Phosphatase 72 U/L (38-126); Aspartate Aminotransferase 29 IU/L (17-59); BUN Creatinine Ratio 21.7 (6-22); Bilirubin Total 1.2 mg/dL (0.2-1.3); Blood Urea Nitrogen 20 mg/dL (9-20); Calcium 8.9 mg/dL (8.4-10.2); Carbon Dioxide 27 mmol/L (22-32); Chloride 103 mmol/L (98-107); Cholesterol 117 mg/dL (140-199); Estimated Glomerular Filt Rate > 60 mL/min (>60); Glucose 84 mg/dL (80-110); HDL Cholesterol 49 mg/dL (40-60); HEMOLYSIS < 15 (0-50); LDL Cholesterol Calculated 20 mg/dL (<100); Sodium 141 mmol/L (137-145); Total Protein 7.5 g/dL (6.3-8.2); Triglycerides 241 mg/dL (35-150)
[2023-01-23 09:29] LABS: NT-proBNP (BNP-Adult 18+) 41 pg/mL (<125)
[2023-01-23 09:50] LABS: Prostate Specific Antigen 0.629 ng/mL (0.10-4.00)
[2023-01-23 15:26] LABS: Creatinine Urine Random 213.6 mg/dL
[2023-01-23 15:31] LABS: Microalbumi Creatinin Ratio Ur 9.8 ug/mg CR (<30); Microalbumin Urine Random 2.1 mg/dL (0-1.6)
== END ==
PROVIDERS: Family Provider Internal Medicine; PCP Family Medicine; Referring Provider Family Medicine; Visit Provider Family Medicine
DX: E78.2 Mixed hyperlipidemia (principal); I10 Essential (primary) hypertension; N40.0 Benign prostatic hyperplasia without lower urinary tract symptoms; E78.5 Hyperlipidemia, unspecified; I50.20 Unspecified systolic (congestive) heart failure; I25.10 Atherosclerotic heart disease of native coronary artery without angina pectoris
CPT/HCPCS: 36415; 80053; 80061; 82043; 82570; 83880; 84153

== ENCOUNTER → 2023-04-02 06:59 | Outpatient (CLI) | payer MEDICARE, SELFPAY ==
[2023-04-02 08:14] LABS: Add Manual Diff / Slide Review NO; Basophils Absolute Auto 0 /uL (0-100); Basophils Percent Auto 0.8 % (0-2); Eosinophils Absolute Auto 300 /uL (0-450); Eosinophils Percent Auto 4.7 % (2-4); Hematocrit 38.9 % (41-53); Hemoglobin 13.3 g/dL (13.5-17.5); Lymphocytes Absolute Auto 2000 /uL (1100-4500); Lymphocytes Percent Auto 34.3 % (25-40); Mean Corpuscular HGB Conc 34.2 % (30-36); Mean Corpuscular Hemoglobin 31.1 PG (26-34); Mean Corpuscular Volume 90.9 fL (80-100); Monocytes Absolute Auto 400 /uL (0-900); Monocytes Percent Auto 6.9 % (3-14); Neutrophils Absolute Auto 3100 /uL (1500-7000); Neutrophils Percent Auto 53.3 % (50-75); Platelet Count 184 X10^3/uL (150-400); Red Blood Cell Count 4.28 X10^6/uL (4.5-5.9); Red Cell Distribution Width 12.5 % (11.6-14.8); White Blood Cell Count 5.8 X10^3/uL (4.5-11.0)
[2023-04-02 16:38] LABS: Hep C Virus Ab w/Reflex Quant NEGATIVE s/c (NEGATIVE)
== END ==
PROVIDERS: Family Provider Internal Medicine; PCP Nurse Practitioner Family; Referring Provider Nurse Practitioner Family; Visit Provider Nurse Practitioner Family
DX: D64.9 Anemia, unspecified (principal); Z11.59 Encounter for screening for other viral diseases
CPT/HCPCS: 36415; 85025; 86803

== ENCOUNTER → 2024-07-29 07:02 | Outpatient (CLI) | payer MEDICARE, SELFPAY ==
[2024-07-29 07:39] LABS: Add Manual Diff / Slide Review NO; Basophils Absolute Auto 100 /uL (0-100); Basophils Percent Auto 0.8 % (0-2); Eosinophils Absolute Auto 500 /uL (0-450); Eosinophils Percent Auto 7.5 % (2-4); Hematocrit 39.4 % (41-53); Hemoglobin 13.2 g/dL (13.5-17.5); Lymphocytes Absolute Auto 2500 /uL (1100-4500); Lymphocytes Percent Auto 39.3 % (25-40); Mean Corpuscular HGB Conc 33.5 % (30-36); Mean Corpuscular Hemoglobin 29.8 PG (26-34); Mean Corpuscular Volume 89.1 fL (80-100); Monocytes Absolute Auto 400 /uL (0-900); Neutrophils Absolute Auto 2900 /uL (1500-7000); Neutrophils Percent Auto 45.4 % (50-75); Platelet Count 168 X10^3/uL (150-400); Red Blood Cell Count 4.43 X10^6/uL (4.5-5.9); Red Cell Distribution Width 13.3 % (11.6-14.8); White Blood Cell Count 6.4 X10^3/uL (4.5-11.0)
[2024-07-29 08:00] LABS: Alanine Aminotransferase 24 IU/L (<50); Albumin Globulin Ratio 1.4 (1.0-2.8); Alkaline Phosphatase 97 U/L (38-126); Aspartate Aminotransferase 21 IU/L (17-59); BUN Creatinine Ratio 18.9 (6-22); Bilirubin Total 1.2 mg/dL (0.2-1.3); Blood Urea Nitrogen 20 mg/dL (9-20); Carbon Dioxide 27 mmol/L (22-32); Chloride 105 mmol/L (98-107); Cholesterol 125 mg/dL (140-199); Estimated Glomerular Filt Rate > 60 mL/min (>60); Globulin 2.8 g/dL (1.7-4.1); Glucose 121 mg/dL (80-110); HDL Cholesterol 38 mg/dL (40-60); HEMOLYSIS < 15 (0-50); LDL Cholesterol Calculated 68 mg/dL (<100); Potassium 4.1 mmol/L (3.4-5.1); Sodium 138 mmol/L (137-145); Total Protein 6.8 g/dL (6.3-8.2); Triglycerides 93 mg/dL (35-150)
== END ==
PROVIDERS: Family Provider Internal Medicine; PCP Student in an Organized Health Care Education/Training Program; Referring Provider Student in an Organized Health Care Education/Training Program; Visit Provider Student in an Organized Health Care Education/Training Program
DX: I51.9 Heart disease, unspecified (principal); I10 Essential (primary) hypertension; E78.5 Hyperlipidemia, unspecified
CPT/HCPCS: 36415; 80053; 80061; 85025

== ENCOUNTER → 2024-11-25 06:59 | Outpatient (CLI) | payer MEDICARE, SELFPAY ==
[2024-11-25 07:36] LABS: Add Manual Diff / Slide Review NO; Basophils Absolute Auto 100 /uL (0-100); Basophils Percent Auto 0.8 % (0-2); Eosinophils Absolute Auto 300 /uL (0-450); Hematocrit 41.5 % (41-53); Hemoglobin 13.9 g/dL (13.5-17.5); Lymphocytes Absolute Auto 2700 /uL (1100-4500); Lymphocytes Percent Auto 39.2 % (25-40); Mean Corpuscular HGB Conc 33.4 % (30-36); Mean Corpuscular Hemoglobin 29.5 PG (26-34); Mean Corpuscular Volume 88.2 fL (80-100); Monocytes Absolute Auto 400 /uL (0-900); Monocytes Percent Auto 6.5 % (3-14); Neutrophils Absolute Auto 3300 /uL (1500-7000); Neutrophils Percent Auto 48.5 % (50-75); Platelet Count 198 X10^3/uL (150-400); Red Blood Cell Count 4.71 X10^6/uL (4.5-5.9); Red Cell Distribution Width 13.4 % (11.6-14.8); White Blood Cell Count 6.8 X10^3/uL (4.5-11.0)
[2024-11-25 08:02] LABS: Alanine Aminotransferase 32 IU/L (<50); Albumin 4.7 g/dL (3.5-5.0); Albumin Globulin Ratio 1.7 (1.0-2.8); Alkaline Phosphatase 87 U/L (38-126); Aspartate Aminotransferase 29 IU/L (17-59); BUN Creatinine Ratio 18.6 (6-22); Bilirubin Total 1.6 mg/dL (0.2-1.3); Blood Urea Nitrogen 22 mg/dL (9-20); Calcium 9.2 mg/dL (8.4-10.2); Carbon Dioxide 30 mmol/L (22-32); Chloride 102 mmol/L (98-107); Cholesterol 136 mg/dL (140-199); Estimated Glomerular Filt Rate > 60 mL/min (>60); Globulin 2.8 g/dL (1.7-4.1); Glucose 121 mg/dL (80-110); HDL Cholesterol 37 mg/dL (40-60); HEMOLYSIS < 15 (0-50); LDL Cholesterol Calculated 71 mg/dL (<100); Potassium 3.7 mmol/L (3.4-5.1); Sodium 141 mmol/L (137-145); Total Protein 7.5 g/dL (6.3-8.2); Triglycerides 138 mg/dL (35-150)
== END ==
PROVIDERS: Family Provider Internal Medicine; PCP Student in an Organized Health Care Education/Training Program; Referring Provider Student in an Organized Health Care Education/Training Program; Visit Provider Student in an Organized Health Care Education/Training Program
DX: I10 Essential (primary) hypertension (principal); E78.5 Hyperlipidemia, unspecified
CPT/HCPCS: 36415; 80053; 80061; 85025

== ENCOUNTER → 2025-01-06 07:03 | Outpatient (CLI) | payer MEDICARE, SELFPAY ==
[2025-01-06 08:39] LABS: BUN Creatinine Ratio 17.1 (6-22); Blood Urea Nitrogen 18 mg/dL (9-20); Calcium 9.1 mg/dL (8.4-10.2); Carbon Dioxide 28 mmol/L (22-32); Chloride 102 mmol/L (98-107); Estimated Glomerular Filt Rate > 60 mL/min (>60); Glucose 113 mg/dL (80-110); HEMOLYSIS < 15 (0-50); Potassium 3.7 mmol/L (3.4-5.1); Sodium 142 mmol/L (137-145)
== END ==
PROVIDERS: Family Provider Internal Medicine; PCP Student in an Organized Health Care Education/Training Program; Referring Provider Nurse Practitioner; Visit Provider Nurse Practitioner
DX: I25.10 Atherosclerotic heart disease of native coronary artery without angina pectoris (principal); I25.5 Ischemic cardiomyopathy
CPT/HCPCS: 36415; 80048

== ENCOUNTER → 2025-10-07 07:02 | Outpatient (CLI) | payer MEDICARE, SELFPAY ==
[2025-10-07 07:48] LABS: Add Manual Diff / Slide Review NO; Hematocrit 39.4 % (41-53); Hemoglobin 13.3 g/dL (13.5-17.5); Lymphocytes Absolute Auto 2600 /uL (1100-4500); Mean Corpuscular HGB Conc 33.8 % (30-36); Mean Corpuscular Hemoglobin 29.6 PG (26-34); Mean Corpuscular Volume 87.8 fL (80-100); Platelet Count 186 X10^3/uL (150-400)
[2025-10-07 07:57] LABS: Hemoglobin A1C% w Est Avg Glu 5.8 % (4.0-6.0)
[2025-10-07 08:01] LABS: Alanine Aminotransferase 29 IU/L (<50); Albumin 4.6 g/dL (3.5-5.0); Albumin Globulin Ratio 1.5 (1.0-2.8); Alkaline Phosphatase 94 U/L (38-126); Blood Urea Nitrogen 17 mg/dL (9-20); Calcium 9.2 mg/dL (8.4-10.2); Carbon Dioxide 25 mmol/L (22-32); Chloride 104 mmol/L (98-107); Cholesterol 127 mg/dL (140-199); Estimated Glomerular Filt Rate > 60 mL/min (>60); Globulin 3.0 g/dL (1.7-4.1); Glucose 105 mg/dL (70-99); HDL Cholesterol 40 mg/dL (40-60); HEMOLYSIS < 15 (0-50); Potassium 4.0 mmol/L (3.4-5.1); Sodium 140 mmol/L (137-145); Total Protein 7.6 g/dL (6.3-8.2); Triglycerides 155 mg/dL (35-150)
== END ==
PROVIDERS: Family Provider Internal Medicine; PCP Student in an Organized Health Care Education/Training Program; Referring Provider Student in an Organized Health Care Education/Training Program; Visit Provider Student in an Organized Health Care Education/Training Program
DX: E66.9 Obesity, unspecified (principal); Z13.1 Encounter for screening for diabetes mellitus; E78.5 Hyperlipidemia, unspecified; I10 Essential (primary) hypertension; M25.9 Joint disorder, unspecified; I51.9 Heart disease, unspecified; Z95.5 Presence of coronary angioplasty implant and graft
CPT/HCPCS: 36415; 80053; 80061; 83036; 85025